=== PATIENT | male | born 1930 | race Asian ===

== ENCOUNTER 2017-11-03 07:48 | Emergency (ER) | payer MEDICARE, OTHER ==
[~2017-11-03] VITALS: Ht 164.8 cm; Wt 59.1 kg
[~2017-11-03 07:48] MED LIST: BETHANECHOL PO; MEMA5TAB; OME40GT PO
[2017-11-03 08:37] LABS: Urine Bilirubin Negative (Negative); Urine Blood 2+ /uL (Negative); Urine Color Yellow (Yellow); Urine Glucose Normal (Normal); Urine Ketone Negative (Negative); Urine Nitrite Negative (Negative); Urine RBC 35 /hpf (0 - 3); Urine Urobilinogen Normal (Negative)
[2017-11-03 08:39] VITALS: BP 104/68
[2017-11-03] MEDS ORDERED: SODIUM CHLORIDE 0.9% 1,000 ML IV ONE (08:47)
[2017-11-03 08:58] LABS: Basophils # (auto) 0 uL; Basophils % (auto) 0.4 % (0.0-2.0); Eosinophils # (auto) 0 uL; Eosinophils % (auto) 0.5 % (0.0-7.0); Hematocrit 37.9 % (41.0-53.0); Hemoglobin 12.9 g/dL (13.5-17.5); Lymphocytes # (auto) 0.9 uL; Lymphocytes % (auto) 12.6 % (10.0-50.0); Mean Corpuscular Hemoglobin 31.8 pg (28.0-32.0); Mean Corpuscular Volume 93.6 fL (80.0-100.0); Mean Platelet Volume 8.4 fL (6.9-10.8); Monocytes # (auto) 0.6 uL; Neutrophils # (auto) 5.6 uL; Neutrophils % (auto) 77.5 % (37.0-80.0); Platelet Count (auto) 216 10^3/uL (140-450); Red Cell Distribution Width 13.2 % (11.8-14.3); White Blood Cell 7.2 10^3/uL (4.4-10.8)
[2017-11-03 09:08] LABS: BUN/Creatinine Ratio 14.3; Calcium 9.4 mg/dL (8.5-10.1); Magnesium 2.2 mg/dL (1.6-2.6); Potassium 3.5 mmol/L (3.5-5.1)
== END 2017-11-03 11:15 | disposition home or self-care (01) ==
LOC: ER 07:48
DX: R33.9 Retention of urine, unspecified (principal); K21.9 Gastro-esophageal reflux disease without esophagitis; J44.9 Chronic obstructive pulmonary disease, unspecified; I25.10 Atherosclerotic heart disease of native coronary artery without angina pectoris
CPT/HCPCS: 36415; 51702; 80048; 81001; 83735; 84443; 85025; 94761; 96360

== ENCOUNTER 2017-11-10 00:28 | Inpatient (IN) | payer MEDICARE, OTHER ==
[~2017-11-10] VITALS: Ht 162.6 cm; Wt 59.0 kg
[2017-11-10 02:17] LABS: Basophils # (auto) 0.1 uL; Basophils % (auto) 0.4 % (0.0-2.0); Eosinophils # (auto) 0.1 uL; Eosinophils % (auto) 0.6 % (0.0-7.0); Hemoglobin 12.9 g/dL (13.5-17.5); Lymphocytes # (auto) 1.7 uL; Lymphocytes % (auto) 11.6 % (10.0-50.0); Mean Corpuscular Hemoglobin 32.8 pg (28.0-32.0); Mean Corpuscular Hgb Conc. 34.8 g/dL (32.0-36.0); Mean Corpuscular Volume 94.4 fL (80.0-100.0); Monocytes # (auto) 2.2 uL; Monocytes % (auto) 15.4 % (0.0-12.0); Neutrophils # (auto) 10.5 uL; Nucleated Red Blood Cells % 0.1 %; Platelet Count (auto) 260 10^3/uL (140-450); Red Blood Cells 3.92 10^6/uL (4.5-5.90); White Blood Cell 14.6 10^3/uL (4.4-10.8)
[2017-11-10 02:34] LABS: INR 0.98 (0.9-1.15); Partial Thromboplastin Time 35.3 sec (22.64-33.71); Prothrombin Time 10.7 sec (9.37-12.3)
[2017-11-10 02:36] LABS: Albumin 3.1 g/dL (3.4-5.0); Magnesium 2.3 mg/dL (1.6-2.6); Potassium 3.5 mmol/L (3.5-5.1)
[2017-11-10 02:41] LABS: Bilirubin, Total 1.4 mg/dL (0.2-1.0); Total Protein 7.5 g/dL (6.4-8.2)
[2017-11-10 03:09] LABS: Urine Bacteria NONE SEEN /hpf (None Seen); Urine Blood TRACE /uL (Negative); Urine Mucus FEW (None Seen); Urine Specific Gravity 1.017 (1.001-1.035); Urine WBC <1 /hpf (0 - 3)
[2017-11-10] MEDS ORDERED: ASPirin-EC 81 mg tab PO ONE (13:00)
[2017-11-10] MEDS ORDERED: NITROGLYCERIN 0.4 MG SL TAB SL PRN (14:15)
[2017-11-10] MEDS ORDERED: MORPHINE SULFATE 4 MG/ML SYR/VIAL IV PRN (14:15)
[2017-11-10] MEDS ORDERED: HYDROcodone-ACET 5/325MG TAB PO PRN (14:15)
[2017-11-10] MEDS ORDERED: ACETAMINOPHEN 500 MG TAB PO PRN (14:15)
[2017-11-10] MEDS ORDERED: ENOXAPARIN SOD 40 MG/0.4 ML SYRINGE SC ONE (14:15)
[2017-11-10] MEDS ORDERED: LORazepam 0.5 MG TAB PO PRN (14:15)
[2017-11-10] MEDS ORDERED: PROMETHAZINE HCL 25 MG/ML 1ML IV PRN (14:15)
[2017-11-10] MEDS ORDERED: cefTRIAXone 1GM/10ml IVPUSH 10 ML IV ONE (14:15)
[2017-11-10] MEDS ORDERED: TEMAZEPAM 15 MG CAP PO PRN (14:15)
[2017-11-10] MEDS ORDERED: IOHEXOL 350 MG/ML 100ML IJ ONE (14:23)
[2017-11-10 14:35] LABS: CRP High Sensitivity 12.4 mg/dL (< 0.3)
[2017-11-10] MEDS: SODIUM CHLORIDE 0.9% 1,000 ML IV SCH (15:28)
[2017-11-10] MEDS: PANTOPRAZOLE 40 MG TAB PO SCH (15:28)
[2017-11-10] MEDS: MORPHINE SULF INJ 2 MG/ML SYRINGE 1ML IV PRN (16:08)
[2017-11-10] MEDS ORDERED: PIPERACILLIN-TAZOB 3.375GM 50 ML IV ONE (16:15)
[2017-11-10] MEDS ORDERED: VANCOMYCIN 1GM/250ML 250 ML IV ONE (16:15)
[2017-11-10] MEDS ORDERED: VANCOMYCIN PER PHARMACY 0 MG IV SCH (16:15)
[2017-11-10 17:13] VITALS: BP 134/75
[2017-11-10 17:42] VITALS: BP 134/75
[2017-11-10] MEDS ORDERED: MILK OF MAGNESIA 30ML SUSP PO PRN (17:45)
[2017-11-10 20:00] VITALS: BP 139/62
[2017-11-10 21:57] VITALS: BP 139/62
[2017-11-10] MEDS: MEMANTINE HCL 5 MG TAB PO SCH (22:36)
[2017-11-10] MEDS: PIPERACILLIN-TAZOB 3.375GM 50 ML IV SCH (22:52)
[2017-11-11] MEDS: SODIUM CHLORIDE 0.9% 1,000 ML IV SCH ×3 (00:06→20:06)
[2017-11-11] MEDS: PIPERACILLIN-TAZOB 3.375GM 50 ML IV SCH ×4 (03:56→21:48)
[2017-11-11 05:08] VITALS: BP 146/79
[2017-11-11 05:22] LABS: Basophils # (auto) 0 uL; Basophils % (auto) 0.1 % (0.0-2.0); Eosinophils # (auto) 0.4 uL; Eosinophils % (auto) 3.4 % (0.0-7.0); Hematocrit 35.2 % (41.0-53.0); Hemoglobin 11.9 g/dL (13.5-17.5); Lymphocytes # (auto) 0.7 uL; Lymphocytes % (auto) 5.1 % (10.0-50.0); Mean Corpuscular Hemoglobin 31.6 pg (28.0-32.0); Mean Corpuscular Hgb Conc. 33.7 g/dL (32.0-36.0); Mean Corpuscular Volume 93.8 fL (80.0-100.0); Monocytes % (auto) 7.5 % (0.0-12.0); Neutrophils # (auto) 11.2 uL; Neutrophils % (auto) 83.9 % (37.0-80.0); Nucleated Red Blood Cells % 0.1 %; Platelet Count (auto) 287 10^3/uL (140-450); Red Blood Cells 3.75 10^6/uL (4.5-5.90); Red Cell Distribution Width 12.8 % (11.8-14.3); White Blood Cell 13.3 10^3/uL (4.4-10.8)
[2017-11-11 05:42] LABS: Albumin 2.7 g/dL (3.4-5.0); BUN/Creatinine Ratio 17.8; Bilirubin, Total 1.6 mg/dL (0.2-1.0); Potassium 3.6 mmol/L (3.5-5.1); Total Protein 6.8 g/dL (6.4-8.2)
[2017-11-11] MEDS: MORPHINE SULF INJ 2 MG/ML SYRINGE 1ML IV PRN (06:26)
[2017-11-11 09:00] VITALS: BP_SYST 109; BP_SYST 125; BP_DIAS 59; BP_DIAS 61
[2017-11-11] MEDS ORDERED: cefTRIAXone 1GM/10ml IVPUSH 10 ML IV SCH (09:00)
[2017-11-11] MEDS: MEMANTINE HCL 5 MG TAB PO SCH ×2 (10:12→21:48)
[2017-11-11] MEDS: ENOXAPARIN SOD 40 MG/0.4 ML SYRINGE SC SCH (10:12)
[2017-11-11] MEDS: PANTOPRAZOLE 40 MG TAB PO SCH (10:12)
[2017-11-11 13:00] VITALS: BP 109/61
[2017-11-11] MEDS ORDERED: VANCOMYCIN 1GM/250ML 250 ML IV SCH (14:00)
[2017-11-11 17:44] VITALS: BP 119/65
[2017-11-11 20:00] VITALS: BP 130/62
[2017-11-11 22:00] VITALS: BP 130/60
[2017-11-12] VITALS (9 sets, daily range): BP systolic 130–160; BP diastolic 68–97
[2017-11-12] MEDS: PIPERACILLIN-TAZOB 3.375GM 50 ML IV SCH ×2 (04:16→09:24)
[2017-11-12] MEDS: SODIUM CHLORIDE 0.9% 1,000 ML IV SCH ×2 (06:06→17:10)
[2017-11-12] MEDS: ENOXAPARIN SOD 40 MG/0.4 ML SYRINGE SC SCH (09:23)
[2017-11-12] MEDS: MEMANTINE HCL 5 MG TAB PO SCH ×2 (09:24→21:54)
[2017-11-12] MEDS: PANTOPRAZOLE 40 MG TAB PO SCH (09:24)
[2017-11-12] MEDS ORDERED: ENOXAPARIN SOD 60 MG/0.6 ML SYRINGE SC ONE (10:15)
[2017-11-12] MEDS ORDERED: TAMSULOSIN HYDROCHLORIDE 0.4 MG CAP PO ONE (10:45)
[2017-11-12] MEDS: TAMSULOSIN HYDROCHLORIDE 0.4 MG CAP PO SCH (15:35)
[2017-11-12] MEDS: ENOXAPARIN SOD 60 MG/0.6 ML SYRINGE SC SCH (21:54)
[2017-11-13] MEDS: SODIUM CHLORIDE 0.9% 1,000 ML IV SCH ×2 (02:06→12:55)
[2017-11-13 05:00] VITALS: BP 142/76
[2017-11-13 08:00] VITALS: BP_SYST 130; BP_SYST 142; BP_DIAS 69; BP_DIAS 74
[2017-11-13] MEDS: ENOXAPARIN SOD 60 MG/0.6 ML SYRINGE SC SCH ×2 (09:59→21:20)
[2017-11-13] MEDS: MEMANTINE HCL 5 MG TAB PO SCH ×2 (09:59→21:20)
[2017-11-13] MEDS: PANTOPRAZOLE 40 MG TAB PO SCH (09:59)
[2017-11-13 12:00] VITALS: BP 144/85
[2017-11-13 17:14] VITALS: BP 141/65
[2017-11-13] MEDS: TAMSULOSIN HYDROCHLORIDE 0.4 MG CAP PO SCH (17:39)
[2017-11-13] MEDS: FINASTERIDE 5 MG TAB PO SCH (18:20)
[2017-11-13 22:38] VITALS: BP 144/73
[2017-11-14 04:52] VITALS: BP 146/77
[2017-11-14 07:46] VITALS: BP 131/69
[2017-11-14] MEDS: MEMANTINE HCL 5 MG TAB PO SCH (10:55)
[2017-11-14] MEDS: ENOXAPARIN SOD 60 MG/0.6 ML SYRINGE SC SCH (10:55)
[2017-11-14] MEDS: FINASTERIDE 5 MG TAB PO SCH (10:55)
[2017-11-14] MEDS: PANTOPRAZOLE 40 MG TAB PO SCH (10:55)
[2017-11-14 11:35] VITALS: BP 133/65
[2017-11-14 12:44] VITALS: BP 133/65
== END 2017-11-14 15:00 | disposition home or self-care (01) | DRG 872 ==
LOC: ER 00:28 → TELE 00:29 → TELE-CENTR 16:39
PROVIDERS: ADMIT Internal Medicine; ATTEND Internal Medicine Pulmonary Disease
DX: A41.9 Sepsis, unspecified organism (principal); E44.0 Moderate protein-calorie malnutrition; E87.1 Hypo-osmolality and hyponatremia; L03.115 Cellulitis of right lower limb; N13.8 Other obstructive and reflux uropathy; N39.0 Urinary tract infection, site not specified; F03.90 Unspecified dementia, unspecified severity, without behavioral disturbance, psychotic disturbance, mood disturbance, and anxiety; N32.0 Bladder-neck obstruction; K21.9 Gastro-esophageal reflux disease without esophagitis; N40.1 Benign prostatic hyperplasia with lower urinary tract symptoms; Z68.22 Body mass index [BMI] 22.0-22.9, adult
CPT/HCPCS: 36415; 71010; 71275; 74176; 80053; 81001; 82150; 82378; 83605; 83690; 83735; 84154; 84484; 85025; 85379; 85610; 85652; 85730; 86141; 87040; 87086; 93005; 93971; 96365; 96372; 96375; J2543